=== PATIENT | male | born 1960 | race Caucasian/White ===

== ENCOUNTER 2018-05-12 13:03 | Inpatient (IN) | payer OTHER ==
[~2018-05-12] VITALS: Ht 167.6 cm; Wt 75.7 kg
[~2018-05-12 13:03] MED LIST: GLU5; GLU500
[2018-05-12 15:11] LABS: BASOPHIL % 0.9 % (0-2); RED CELL DISTRIBUTION WIDTH 12.7 % (11.5-14.5)
[2018-05-12] MEDS ORDERED: METFORMIN HYD1000 M2 PO (15:15)
[2018-05-12 15:17] LABS: CALCIUM 9.2 mg/dL (8.5-10.1); CARBON DIOXIDE 24.3 mmol/L (21-32); CHLORIDE SERUM 99 mmol/L (98-107); CREATININE SERUM 1.2 mg/dL (0.7-1.3); GFR1 > 60 mL/min; GLUCOSE SERUM 235 mg/dL (74-106); POTASSIUM SERUM 4.4 mmol/L (3.5-5.1); SODIUM SERUM 135 mmol/L (136-145)
[2018-05-12] MEDS ORDERED: DIA5 PO (15:17)
[2018-05-12 15:22] LABS: ALKALINE PHOSPHATASE 135 U/L (46-116); ALT/SGPT 54 U/L (16-63); AST/SGOT 36 U/L (15-37); BILIRUBIN TOTAL 0.3 mg/dL (0.20-1.00); PLATELET COUNT 74 x10^3mcL (130-400); TOTAL PROTEIN, SERUM 7.1 g/dL (6.4-8.2)
[2018-05-12 15:23] LABS: ALBUMIN 3.3 g/dL (3.4-5.0)
[2018-05-12 17:22] LABS: CHOLESTEROL/HDL RATIO 2.7; PHOSPHOROUS 3.1 mg/dL (2.5-4.9)
[2018-05-12 17:25] LABS: T3 TOTAL 0.88 ng/mL
[2018-05-12 17:56] LABS: FREE T4 1.07 ng/dL (0.76-1.46); FREE THYROXINE INDEX 2.6 ug/dL (1.4-4.5); T4(THYROXINE) 7.7 ug/dL (4.7-13.3)
[2018-05-12 18:06] VITALS: BP 132/67
[2018-05-12 18:10] VITALS: BP 132/67
[2018-05-12 19:35] VITALS: BP 110/61
[2018-05-12 21:32] VITALS: BP 109/63
[2018-05-13 03:32] LABS: microscopic required? NO
[2018-05-13 03:37] LABS: UA SPECIFIC GRAVITY 1.015 (1.005-1.035); urine erythrocyte NEGATIVE (NEGATIVE)
[2018-05-13 04:22] LABS: AMPHETAMINE QUAL UR NONE DETECTED (See below)
[2018-05-13 05:46] VITALS: BP 117/69
[2018-05-13 07:13] LABS: BASOPHIL % 0.9 % (0-2); CALCIUM 8.5 mg/dL (8.5-10.1); CARBON DIOXIDE 25.1 mmol/L (21-32); CHLORIDE SERUM 101 mmol/L (98-107); CREATININE SERUM 0.9 mg/dL (0.7-1.3); GFR1 > 60 mL/min; GLUCOSE SERUM 176 mg/dL (74-106); MAGNESIUM 1.8 mg/dL (1.8-2.4); POTASSIUM SERUM 3.8 mmol/L (3.5-5.1); RED CELL DISTRIBUTION WIDTH 12.6 % (11.5-14.5); SODIUM SERUM 137 mmol/L (136-145)
[2018-05-13 07:31] LABS: PLATELET COUNT 68 x10^3mcL (130-400)
[2018-05-13 09:24] VITALS: BP 118/64
[2018-05-13 16:59] VITALS: BP 101/64
[2018-05-13 20:33] VITALS: BP 113/65
[2018-05-14 06:05] VITALS: BP 101/62
[2018-05-14 08:37] LABS: BASOPHIL % 0.9 % (0-2); PLATELET COUNT 69 x10^3mcL (130-400); RED CELL DISTRIBUTION WIDTH 12.7 % (11.5-14.5)
[2018-05-14 08:41] LABS: CALCIUM 8.6 mg/dL (8.5-10.1); CARBON DIOXIDE 29.2 mmol/L (21-32); CHLORIDE SERUM 104 mmol/L (98-107); CREATININE SERUM 0.9 mg/dL (0.7-1.3); GFR1 > 60 mL/min; GLUCOSE SERUM 189 mg/dL (74-106); PHOSPHOROUS 2.8 mg/dL (2.5-4.9); POTASSIUM SERUM 4.2 mmol/L (3.5-5.1); SODIUM SERUM 137 mmol/L (136-145)
[2018-05-14 09:17] VITALS: BP 114/63
[2018-05-14 16:22] VITALS: BP 131/69
[2018-05-14 20:47] VITALS: BP 106/55
[2018-05-15 05:45] VITALS: BP 126/72
[2018-05-15 06:35] LABS: BASOPHIL % 1.3 % (0-2); RED CELL DISTRIBUTION WIDTH 12.4 % (11.5-14.5)
[2018-05-15 06:46] LABS: PLATELET COUNT 61 x10^3mcL (130-400)
[2018-05-15 07:10] LABS: CALCIUM 8.7 mg/dL (8.5-10.1); CARBON DIOXIDE 26.3 mmol/L (21-32); CHLORIDE SERUM 103 mmol/L (98-107); CREATININE SERUM 0.8 mg/dL (0.7-1.3); GFR1 > 60 mL/min; GLUCOSE SERUM 204 mg/dL (74-106); MAGNESIUM 1.8 mg/dL (1.8-2.4); PHOSPHOROUS 4.3 mg/dL (2.5-4.9); POTASSIUM SERUM 3.9 mmol/L (3.5-5.1); SODIUM SERUM 139 mmol/L (136-145)
[2018-05-15 10:01] VITALS: BP 115/68
[2018-05-15 17:00] VITALS: BP 107/68
[2018-05-15 21:12] VITALS: BP 114/62
[2018-05-16 05:54] VITALS: BP 136/75
[2018-05-16 06:18] LABS: BASOPHIL % 1.1 % (0-2); RED CELL DISTRIBUTION WIDTH 12.4 % (11.5-14.5)
[2018-05-16 06:45] LABS: CALCIUM 8.7 mg/dL (8.5-10.1); CARBON DIOXIDE 25.4 mmol/L (21-32); CHLORIDE SERUM 103 mmol/L (98-107); CREATININE SERUM 0.8 mg/dL (0.7-1.3); GFR1 > 60 mL/min; GLUCOSE SERUM 188 mg/dL (74-106); MAGNESIUM 1.8 mg/dL (1.8-2.4); PHOSPHOROUS 4.2 mg/dL (2.5-4.9); POTASSIUM SERUM 3.7 mmol/L (3.5-5.1); SODIUM SERUM 139 mmol/L (136-145)
[2018-05-16 07:00] LABS: PLATELET COUNT 60 x10^3mcL (130-400)
[2018-05-16 09:43] VITALS: BP 127/70
[2018-05-16 20:00] VITALS: BP 127/65
[2018-05-17 05:39] VITALS: BP 126/75
[2018-05-17 10:18] VITALS: BP 129/80
[2018-05-17 13:38] VITALS: BP 101/61
[2018-05-17 21:32] VITALS: BP 134/74
[2018-05-18 05:50] VITALS: BP 118/69
[2018-05-18 06:57] LABS: BASOPHIL % 1.4 % (0-2); RED CELL DISTRIBUTION WIDTH 12.5 % (11.5-14.5)
[2018-05-18 07:00] LABS: PLATELET COUNT 62 x10^3mcL (130-400)
[2018-05-18 07:30] LABS: CALCIUM 8.9 mg/dL (8.5-10.1); CARBON DIOXIDE 25.6 mmol/L (21-32); CHLORIDE SERUM 104 mmol/L (98-107); CREATININE SERUM 0.8 mg/dL (0.7-1.3); GFR1 > 60 mL/min; GLUCOSE SERUM 118 mg/dL (74-106); MAGNESIUM 1.9 mg/dL (1.8-2.4); PHOSPHOROUS 3.8 mg/dL (2.5-4.9); POTASSIUM SERUM 3.6 mmol/L (3.5-5.1); SODIUM SERUM 141 mmol/L (136-145)
[2018-05-18 08:27] LABS: ERYTHROCYTE SED RATE 23 mm/hr (0-20)
[2018-05-18 09:26] VITALS: BP 133/87
[2018-05-18 17:16] VITALS: BP 120/74
[2018-05-18 19:56] VITALS: BP 131/69
[2018-05-19 05:35] VITALS: BP 120/71
[2018-05-19 10:09] VITALS: BP 131/71
[2018-05-19 18:01] VITALS: BP 113/75
[2018-05-19 18:28] VITALS: BP 113/75
== END 2018-05-19 22:20 | disposition home health service (06) | DRG 638 ==
LOC: ED 13:03 → MU 16:06
PROVIDERS: Emergency Medicine; Family Medicine; Internal Medicine
DX: E11.69 Type 2 diabetes mellitus with other specified complication (principal); M86.8X4 Other osteomyelitis, hand; E44.1 Mild protein-calorie malnutrition; E87.2 Acidosis; I10 Essential (primary) hypertension; E11.65 Type 2 diabetes mellitus with hyperglycemia; Z79.84 Long term (current) use of oral hypoglycemic drugs; Z79.899 Other long term (current) drug therapy; D69.6 Thrombocytopenia, unspecified
CPT/HCPCS: 82962; 83880; 84439; A9577; C1751; J0696; J1815; J2543; J3370; J3490; J7030; Q0092